=== PATIENT | female | born 1985 | race African-American/Black ===

== ENCOUNTER 2017-01-11 09:07 | Emergency (ER) | payer OTHER | END 2017-01-11 10:01 | disposition home or self-care (01) | LOC: ERS 09:07 | DX: L03.116 Cellulitis of left lower limb (principal); T24.002D Burn of unspecified degree of unspecified site of left lower limb, except ankle and foot, subsequent encounter; X19.XXXD Contact with other heat and hot substances, subsequent encounter; F17.210 Nicotine dependence, cigarettes, uncomplicated | CPT/HCPCS: 99283 ==

== ENCOUNTER 2017-01-14 16:46 | Emergency (ER) | payer OTHER, SELFPAY | END 2017-01-14 17:06 | disposition home or self-care (01) | LOC: ERS 16:46 | DX: S80.821A Blister (nonthermal), right lower leg, initial encounter (principal); F17.210 Nicotine dependence, cigarettes, uncomplicated; X58.XXXA Exposure to other specified factors, initial encounter | CPT/HCPCS: 99282 ==

== ENCOUNTER 2017-01-18 14:39 | Emergency (ER) | payer OTHER, SELFPAY ==
[2017-01-18] MEDS ORDERED: Silver Sulfadiazine 1% Cream 50 GM JAR ONE (15:25)
== END 2017-01-18 15:41 | disposition home or self-care (01) ==
LOC: ERS 14:39
DX: T24.212A Burn of second degree of left thigh, initial encounter (principal); F17.210 Nicotine dependence, cigarettes, uncomplicated; X19.XXXA Contact with other heat and hot substances, initial encounter
CPT/HCPCS: 16020

== ENCOUNTER 2017-12-09 03:47 | Emergency (ER) | payer SELFPAY ==
[2017-12-09] MEDS ORDERED: Ketorolac Tromethamine 60 MG/2 ML VIAL ONE (04:04)
[2017-12-09] MEDS ORDERED: Lidocaine Viscous Sol 2% 15 ml UD Cup ONE ×2 (04:20→04:23)
[2017-12-09] MEDS ORDERED: Bupivacaine 0.25% 10 ML VIAL ONE (04:20)
[2017-12-09] MEDS ORDERED: Lidocaine 1% w/Epinephrine 1:100K 20 ML VIAL ONE (04:20)
[2017-12-09 04:42] LABS: Pregnancy Test - Urine (BHCG) Negative (Negative)
[2017-12-09 04:43] LABS: Pregu Control Background? CLEAR/WHITE (CLR/WHITE); Pregu Control Bar Appear? YES (CONTROL BAR); Specific Gravity 1.026 (1.002-1.036)
== END 2017-12-09 05:05 | disposition home or self-care (01) ==
LOC: ERS 03:47
DX: K03.2 Erosion of teeth (principal); F17.210 Nicotine dependence, cigarettes, uncomplicated
CPT/HCPCS: 64400; 81025; 96372; J1885; J2001; S0020

== ENCOUNTER 2018-03-30 12:02 | Emergency (ER) | payer SELFPAY | END 2018-03-30 12:32 | disposition home or self-care (01) | LOC: ERS 12:02 | DX: S16.1XXA Strain of muscle, fascia and tendon at neck level, initial encounter (principal); F17.210 Nicotine dependence, cigarettes, uncomplicated; Y93.84 Activity, sleeping; X58.XXXA Exposure to other specified factors, initial encounter | CPT/HCPCS: 99283 ==

== ENCOUNTER 2018-04-05 15:36 | Emergency (ER) | payer SELFPAY ==
[2018-04-05] MEDS ORDERED: Morphine 4 MG/ML VIAL ONE (16:11)
[2018-04-05] MEDS ORDERED: Silver Sulfadiazine 1% Cream 50 GM JAR ONE (16:11)
[2018-04-05] MEDS ORDERED: Ondansetron PF 4 MG/2 ML Vial ONE (16:11)
== END 2018-04-05 16:48 | disposition home or self-care (01) ==
LOC: ERS 15:36
DX: T22.10XA Burn of first degree of shoulder and upper limb, except wrist and hand, unspecified site, initial encounter (principal); T20.10XA Burn of first degree of head, face, and neck, unspecified site, initial encounter; F17.210 Nicotine dependence, cigarettes, uncomplicated; X08.8XXA Exposure to other specified smoke, fire and flames, initial encounter
CPT/HCPCS: 96374; 96375; J2270; J2405

== ENCOUNTER 2019-05-01 13:30 | Emergency (ER) | payer SELFPAY ==
[2019-05-01] MEDS ORDERED: Naproxen 500 MG TAB ONE (14:16)
== END 2019-05-01 14:20 | disposition home or self-care (01) ==
LOC: ERS 13:30
DX: K02.9 Dental caries, unspecified (principal); Z87.891 Personal history of nicotine dependence
CPT/HCPCS: 99282

== ENCOUNTER 2019-05-07 06:04 | Emergency (ER) | payer SELFPAY ==
[2019-05-07] MEDS ORDERED: Bupivacaine 0.25% 10 ML VIAL ONE (06:33)
== END 2019-05-07 07:10 | disposition home or self-care (01) ==
LOC: ERS 06:04
DX: K02.9 Dental caries, unspecified (principal); Z87.891 Personal history of nicotine dependence; Z79.899 Other long term (current) drug therapy
CPT/HCPCS: 64400; S0020